=== PATIENT | male | born 1940 | race Caucasian/White ===

== ENCOUNTER 2021-12-09 20:25 | Inpatient (IN) | payer OTHER ==
[~2021-12-09] VITALS: Ht 170.2 cm; Wt 57.6 kg
[2021-12-09 20:38] VITALS: BP 131/96
--- NOTE | 2021-12-09 20:47 | NUR ---
Dr. Reed at bedside to exam patient.
--- NOTE | 2021-12-09 20:50 | NUR ---
observedpt to be svt in 190s-200s then convert to afib rvr 110-120s.
--- NOTE | 2021-12-09 20:50 | NUR ---
CODE BRAIN INITIATED PER DR. NUNES. RADIOLOGY NOTIFIED
--- NOTE | 2021-12-09 21:00 | NUR ---
zoll strips stored in pt chart.
--- NOTE | 2021-12-09 21:11 | NUR ---
Patient transfer to CT scan with RN and EMT via [facility].
[2021-12-09 21:20] LABS: BASOPHILS % (AUTO) 0.3 % (0.0-2.0); EOSINOPHILS # (AUTO) 0.2 K/uL (0-0.4); EOSINOPHILS % (AUTO) 1.3 % (0.0-4.0); HEMATOCRIT 50.7 % (36-52); HEMOGLOBIN 17.4 g/dL (12.0-18.0); LYMPHOCYTES # (AUTO) 1.4 K/uL (2.0-11.5); LYMPHOCYTES % (AUTO) 10.7 % (20.5-51.1); MEAN CORPUSCULAR HEMOGLOBIN 32 pg (27-31); MEAN CORPUSCULAR HGB CONC 34 g/dL (33-37); MEAN CORPUSCULAR VOLUME 93.7 fL (80-94); MONOCYTES # (AUTO) 1.3 K/uL (0.8-1.0); NEUTROPHILS # (AUTO) 9.8 K/uL (1.8-7.7); NEUTROPHILS % (AUTO) 77.7 % (42.2-75.2); PLATELET COUNT (AUTO) 239 K/uL (140-450); RED BLOOD CELL COUNT(AUTO) 5.41 MIL/uL (4.20-6.10); RED CELL DISTRIBUTION WIDTH 14.6 % (11.6-13.7); WHITE BLOOD COUNT (AUTO) 12.6 K/uL (4.8-10.8)
--- NOTE | 2021-12-09 21:20 | NUR ---
Patieny returned from CT.
[2021-12-09 21:43] LABS: ANION GAP 14.7 (8-16); ASPARTATE AMINOTRANSFERASE 48 U/L (15-37); CARBON DIOXIDE 27.8 mmol/L (21-32); CHLORIDE 98 mmol/L (98-107); CREATININE 0.9 mg/dL (0.6-1.3); GLUCOSE 188 mg/dL (74-106); POTASSIUM 4.5 mmol/L (3.5-5.1); SODIUM SERUM 136 mmol/L (136-145); TOTAL BILIRUBIN 1.1 mg/dL (0.0-1.0); UREA NITROGEN, BLOOD 17 mg/dL (7-18)
--- NOTE | 2021-12-09 21:45 | NUR ---
received pt from intake and placed to bed 12. pt currently a/o x 4, gcs 15. able tomove all extremities freely. pt is a 81 year old male with hx of DM, MDD, dysphagia and HLD, CVA with R sided weakness coming from [facility] for cc of gen weak. bs 175 initially. code brain called. NIH of 3 given with passed dysphagia screen. pt reports feeling ill.
--- NOTE | 2021-12-09 21:50 | NUR ---
RETURN CALL FROM NEURO WHO SPOKE WITH DR. NUNES
[2021-12-09] MEDS ORDERED: NACL 0.9% 1,000 ML IV ONE (22:35)
--- NOTE | 2021-12-09 23:04 | NUR ---
pt taken to CT via [facility]
--- NOTE | 2021-12-09 23:11 | NUR ---
report given to Trinity HINDS
--- NOTE | 2021-12-09 23:16 | NUR ---
PT TAKEN TO [facility] DEPT FROM CT
--- NOTE | 2021-12-09 23:26 | NUR ---
PATIENT WAS BROUGHT TO MST UNIT FROM ER VIA [facility] AAOX4. ON ROOM AIR. NO S/S OF RESPIRATORY DISTRESS. BREATHING REGULAR NON LABORED. NO COMPLAINTS OF PAIN AT THIS TIME. ON TELE MONITOR. SKIN IS INTACT WITH TATTOO TO LEFT AND RIGHT FOREARM. ALL SAFETY PRECAUTIONS ARE IN PLACE. ORIENTED TO CALL LIGHT, ROOM AND STAFF. PATIENT CLEANED AND CHANGED. RESTING COMFORTABLY IN BED.
--- NOTE | 2021-12-10 | NUR ---
STARTED IVF NS AT 75 ML/HR. V/S: 212/81, 94, 22, 96.9, 96% RA.
--- NOTE | 2021-12-10 03:25 | NUR ---
PATIENT SLEEPING, OBSERVED CHEST RISE AND FALL SYMMETRICALLY. CALL LIGHT WITHIN REACH.
[2021-12-10 05:39] LABS: BASOPHILS % (AUTO) 0.1 % (0.0-2.0); EOSINOPHILS # (AUTO) 0.2 K/uL (0-0.4); HEMATOCRIT 42.6 % (36-52); HEMOGLOBIN 14.6 g/dL (12.0-18.0); LYMPHOCYTES # (AUTO) 1.3 K/uL (2.0-11.5); LYMPHOCYTES % (AUTO) 14.3 % (20.5-51.1); MEAN CORPUSCULAR HEMOGLOBIN 32 pg (27-31); MEAN CORPUSCULAR HGB CONC 34 g/dL (33-37); MEAN CORPUSCULAR VOLUME 93.1 fL (80-94); MONOCYTES % (AUTO) 10.5 % (1.7-9.3); NEUTROPHILS # (AUTO) 6.8 K/uL (1.8-7.7); NEUTROPHILS % (AUTO) 73.1 % (42.2-75.2); PLATELET COUNT (AUTO) 198 K/uL (140-450); RED BLOOD CELL COUNT(AUTO) 4.58 MIL/uL (4.20-6.10); RED CELL DISTRIBUTION WIDTH 14.3 % (11.6-13.7); WHITE BLOOD COUNT (AUTO) 9.2 K/uL (4.8-10.8)
[2021-12-10 06:29] LABS: ANION GAP 11.2 (8-16); ASPARTATE AMINOTRANSFERASE 16 U/L (15-37); CARBON DIOXIDE 26.3 mmol/L (21-32); CHLORIDE 105 mmol/L (98-107); CREATININE 0.8 mg/dL (0.6-1.3); GLUCOSE 145 mg/dL (74-106); POTASSIUM 3.5 mmol/L (3.5-5.1); SODIUM SERUM 139 mmol/L (136-145); TOTAL BILIRUBIN 0.6 mg/dL (0.0-1.0); UREA NITROGEN, BLOOD 15 mg/dL (7-18)
--- NOTE | 2021-12-10 07:30 | NUR ---
RECEIVED REPORT FROM FRONT OFFICE MANAGER NURSE. PT IS AWAKE, A&OX4. PT ON ROOM AIR, BREATHING UNLABORED. PT ON BED REST. IV SITE ON LEFT AC, 22G, RUNNING AT 75ML/HR NSS. PLAN OF CARE DISCUSSED.
--- NOTE | 2021-12-10 07:49 | NUR ---
BEDSIDE ENDORSEMENT GIVEN TO AM NURSE FOR CONTINUITY OF CARE. PT IS STABLE.
[2021-12-10 08:00] VITALS: BP 130/81
--- NOTE | 2021-12-10 10:00 | NUR ---
PT'S HEART RATE WENT UP TO 180, PT IS ASYMPTOMATIC, DENIES CHEST PAIN, ENCOURAGED TO DO DEEP BREATHING AND VALSALVA MANEUVER.
--- NOTE | 2021-12-10 10:04 | NUR ---
PATIENT HAS BEEN SCREENED AND CATEGORIZED LOW NUTRITION RISK. PATIENT WILL BE SEEN WITHIN 7 DAYS OF ADMISSION. 12/16/[address]
[2021-12-10] MEDS ORDERED: ACETAMINOPHEN 325 MG TAB PO PRN (10:25)
[2021-12-10] MEDS ORDERED: ONDANSETRON 4 MG/2 ML VIAL IM/IVP PRN (10:25)
[2021-12-10] MEDS ORDERED: DOCUSATE SODIUM 100 MG GELCAP PO PRN (10:25)
[2021-12-10 12:00] VITALS: BP 120/65
[2021-12-10] MEDS ORDERED: BUPR150T12 PO (12:30)
[2021-12-10] MEDS ORDERED: ASPI-1822 PO (12:30)
[2021-12-10] MEDS ORDERED: OMEP40EC23 PO (12:30)
[2021-12-10] MEDS ORDERED: ATOR40TA PO (12:30)
[2021-12-10 12:52] LABS: CHOL/HDL RATIO 2.7 (1-4.5); MAGNESIUM 1.9 mg/dL (1.8-2.4); PHOSPHORUS 3.4 mg/dL (2.5-4.9); THYROID STIMULATING HORMONE 0.98 uIU/mL (0.34-3.74)
[2021-12-10 12:54] LABS: PROTHROMBIN TIME 9.9 secs (10.8-13.4)
--- NOTE | 2021-12-10 13:10 | NUR ---
PT REQUESTED FOR WATER, BUT INSTRUCTED PT THAT HE'S ON NPO. TRIED TO GIVE 1 SMALL BLOCK OF ICE, AND INSTRUCTED PT TO JUST LET IT MELT IN HIS MOUTH. PT VERBALIZED UNDERSTANDING. PT COUGHED AFTER THE ICE MELTED IN HIS MOUTH, AND DISCONTINUED GIVING ICE.
[2021-12-10] MEDS ORDERED: MAG SULF 2000 MG/WATER PREMIX 50 ML IV PRN (14:30)
[2021-12-10] MEDS ORDERED: POTASSIUM CHLORIDE 10 MEQ TABER PO PRN (14:30)
[2021-12-10] MEDS ORDERED: HYDROcodone/APAP 5/325 MG 1 TAB TAB PO PRN (14:35)
[2021-12-10] MEDS ORDERED: LORazepam 2 MG/ML VIAL IM/IVP PRN (14:35)
[2021-12-10] MEDS ORDERED: ZOLPIDEM 5 MG TAB PO PRN (14:35)
[2021-12-10 16:00] VITALS: BP 143/74
--- NOTE | 2021-12-10 16:00 | NUR ---
PT AWAKE, LYING ON HIS BED, BREATHING UNLABORED. WILL CONTINUE TO MONITOR.
--- NOTE | 2021-12-10 19:10 | NUR ---
GAVE REPORT TO AUTOMOTIVE LIGHT MECHANIC NURSE. PT IS STABLE. DISCUSSED PLAN OF CARE.
--- NOTE | 2021-12-10 19:30 | NUR ---
RECEIVED REPORT FROM GUZMAN HILL AT BEDSIDE FOR CONTINUITY OF CARE, PT IN BED AOX3 ON ROOM AIR WITH NO S/S OF DISTRESS NOTED. PT IS NOTED WITH A RIGHT SIDED FACIAL DROOP EFRAIN. IN THE MOUTH. PT RIGHT SIDED IV SITE IS OUT. WILL REPLACE IT WITH ANOTHER IV SITE. SKIN INTACT, PT IS A FALLS RISK AND ON FALLS PRECAUTIONS. PT HAS NO C/O VOICED AT THIS TIME.
--- NOTE | 2021-12-10 19:30 | NUR ---
PT PULLED IV OUT WHILE GIVING REPORT TO SHOESHINER NURSE. BLEEDING CONTROLLED. SAFETY MEASURES DONE. INSERTED NEW IV ON LEFT FA, 22G. IV SITE IS INTACT, AND INFUSING WELL.
[2021-12-10 20:00] VITALS: BP 130/72
--- NOTE | 2021-12-10 20:00 | NUR ---
PT RECEIVED A NEW IV SITE IN THE LEFT F/A 22 GUAGE. OLD IV IS OUT CANNULA INTACT. PT ALSO SUBMITTED A URINE SAMPLE FOR ORDERED TESTS IT WAS SENT TO LAB FOR PROCESSING. FLUIDS CONTINUE NORMAL SALINE AT 75MLS/HR. V/S FOLLOWS: T 97.6 P 75 R 20 B/P 130/72 02 93% ON ROOM AIR.
--- NOTE | 2021-12-10 21:30 | NUR ---
PT GIVEN ORDERED LIPITOR, WELLBUTRIN AND HEPARIN (SQ).PT EDUCATED REGARDING MEDICATION. REINFORCEMENT NEEDED , BUT PT VERBALIZED UNDERSTANDING. PT ABLE TO TAKE MEDICATION WHOLE WITH APPLE SAUCE AND DRINK THIN LIQUIDS NO PROBLEM. PT IS ABLE TO TURN SELF IN BED AND MAKE NEEDS KNOWN. ALL FALLS AND ASPIRATION PRECAUTIONS IN PLACE.
[2021-12-10] MEDS: buPROPion 150 MG TABER PO SCH (22:08)
[2021-12-10] MEDS: ATORVASTATIN 20 MG TAB PO SCH (22:09)
--- NOTE | 2021-12-10 22:15 | NUR ---
ROUNDS DONE, PT IN BED ASLEEP ALL ORDERED PRECAUTIONS IN PLACE.
[2021-12-10 23:42] LABS: APPEARANCE,URINE CLEAR (CLEAR); BILIRUBIN,URINE NEGATIVE (NEGATIVE); BLOOD, URINE NEGATIVE (NEGATIVE); COLOR,URINE YELLOW (YELLOW); LEUKOCYTE ESTERASE ,URINE 2+ (NEGATIVE); NITRITE, URINE NEGATIVE (NEGATIVE); PH,URINE 6.5 (5.0-9.0); UGLUCOSE NEGATIVE (NEGATIVE)
[2021-12-10 23:51] LABS: BARBITURATE, URINE NEGATIVE ng/ml (NEG <=200); BENZODIAZEPINE, URINE NEGATIVE ng/mL (NEG <=200); CANNABINOID, URINE NEGATIVE ng/mL (NEG <=50); COCAINE, URINE NEGATIVE ng/mL (NEG <=300); OPIATE, URINE NEGATIVE ng/mL (NEG <=2000); PHENCYCLIDINE SCREEN,URINE NEGATIVE ng/mL (NEG <=25)
[2021-12-10 23:56] LABS: RBC,URINE 0-5 /HPF (0-5); URINE AMORPHOUS URATE 2+ /HPF (None Seen)
[2021-12-11] VITALS: BP 130/69
--- NOTE | 2021-12-11 00:30 | NUR ---
PT IN BED ASLEEP, AROUSABLE TO NAME AND LIGHT SHAKING NO C/O VOICED V/S FOLLOWS: T 97.0 P 81 R 19 B/P 130/69 02 92% ON ROOM AIR. ALL ORDERED PRECAUTIONS IN PLACE.
--- NOTE | 2021-12-11 01:45 | NUR ---
LABS CHECKED URINE POSITIVE FOR + 30 BACTERIA TEXTED MD GOMEZ CYLINDER HANDLER, BECAUSE PT HAS NO EMPIRIC THERAPY ORDERED.
[2021-12-11 04:00] VITALS: BP 123/58
[2021-12-11 05:55] LABS: BASOPHILS % (AUTO) 0.2 % (0.0-2.0); EOSINOPHILS # (AUTO) 0.2 K/uL (0-0.4); HEMATOCRIT 42.5 % (36-52); HEMOGLOBIN 14.3 g/dL (12.0-18.0); LYMPHOCYTES # (AUTO) 1.4 K/uL (2.0-11.5); MEAN CORPUSCULAR HEMOGLOBIN 32 pg (27-31); MEAN CORPUSCULAR HGB CONC 34 g/dL (33-37); MEAN CORPUSCULAR VOLUME 93.5 fL (80-94); MONOCYTES # (AUTO) 0.7 K/uL (0.8-1.0); MONOCYTES % (AUTO) 10.3 % (1.7-9.3); NEUTROPHILS # (AUTO) 4.6 K/uL (1.8-7.7); NEUTROPHILS % (AUTO) 66.5 % (42.2-75.2); PLATELET COUNT (AUTO) 168 K/uL (140-450); RED BLOOD CELL COUNT(AUTO) 4.54 MIL/uL (4.20-6.10); RED CELL DISTRIBUTION WIDTH 14.3 % (11.6-13.7); WHITE BLOOD COUNT (AUTO) 6.9 K/uL (4.8-10.8)
--- NOTE | 2021-12-11 06:00 | NUR ---
PT FINGERSTICK TAKEN IT WAS 129 NO HUMALOG COVERAGE NEEDED. PT ABLE TO REPOSITION IN BED NO C/O VOICED ALL REQUESTED NEEDS ATTENDED BY STAFF AND ALL ORDERED PRECAUTIONS IN PLACE.
[2021-12-11 06:20] LABS: CHOL/HDL RATIO 2.8 (1-4.5)
[2021-12-11 06:22] LABS: PHOSPHORUS 2.7 mg/dL (2.5-4.9)
[2021-12-11 06:29] LABS: ANION GAP 8.1 (8-16); CARBON DIOXIDE 26.5 mmol/L (21-32); CHLORIDE 106 mmol/L (98-107); CREATININE 0.7 mg/dL (0.6-1.3); GLUCOSE 115 mg/dL (74-106); POTASSIUM 3.6 mmol/L (3.5-5.1); SODIUM SERUM 137 mmol/L (136-145); UREA NITROGEN, BLOOD 10 mg/dL (7-18)
--- NOTE | 2021-12-11 07:30 | NUR ---
RECEIVED REPORT FROM BALLOON PILOT NURSE AT BEDSIDE FOR CONTINUITY OF CARE, PT IN BED AOX3 ON ROOM AIR WITH NO S/S OF DISTRESS NOTED. NO FACIAL DROOP WAS NOTED. SKIN IS WARM, DRY, AND INTACT. IV SITE ON LAC 22G INTACT AND PATENT. PT DENIES PAIN AT THE MOMENT. PT IS A FALLS RISK AND ON FALLS PRECAUTIONS. PLAN OF CARE DISCUSSED. SAFETY PRECAUTIONS IN PLACE. CALL LIGHT WITHIN REACH. WILL CONTINUE TO MONITOR.
[2021-12-11 08:00] VITALS: BP 139/81
--- NOTE | 2021-12-11 08:23 | NUR ---
DC PLANNING: CM RECEIVED AN ORDER FOR THE PATIENT TO HAVE AN MRI. ORDER AND PACKET FAXED TO [facility] [employer] SALES CONSULTANT WHO STATES THAT THE CASINO WORKER WON'T BE IN UNTIL 11:00 AND SHE WILL CALL CM TO POTENTIALLY SCHEDULE PROCEDURE. PATIENT PLACED ON WILL CALL WITH [facility] ([phone]), ALS LEVEL WITH TELEMETRY MONITORING. PCS FORM SENT TO [facility], TRANSPORT AUTH'D BY [facility], AUTH NUMBER GIVEN TO [facility]-[id number]. CM ASKED CHARGE NURSE GURWINDER TO HAVE THE PATIENTS NURSE COMPLETE THE MRI FORM, CM WILL FAX FORM ONCE COMPLETED. CM WILL FOLLOW. Addendum: 12/11/21 at 1116 by Elena Samuels CM DC PLANNING: THE PATIENT PRESENTED TO THE ED WITH C/O RIGHT SIDED FACIAL DROOP, H/O PRIOR CVA AND DM. SHIRLEY SPOKE WITH MYCHAL, THE HISTORIOGRAPHY PROFESSOR OF THE B& THAT THE PATIENT RESIDES AT. THE PATIENT IS NORMALLY ALERT AND ORIENTED AND IS ABLE TO AMBULATE AROUND THE HOUSE/FACILITY USING HIS FWW. HE HAS BEEN AT THE [facility] FOR 6 YEARS AND HAS ALSO BEEN AT [facility]. THE PATIENT WAS NOTED TO BE WEAKER THAN USUAL AND REQUIRING MORE ASSISTANCE WITH TRANSFERS. HE NORMALLY DRESSES HIMSELF AND REQUIRES ASSISTANCE GETTING INTO THE SHOWER BUT BATHES AND FEEDS HIMSELF. DEPENDING ON THE PATIENTS LEVEL OF FUNCTIONING HE MAY REQUIRE SNF PLACEMENT VS RETURNING TO THE &, [facility] WOULD BE THE CHOICE OF THE [facility] HISTORIOGRAPHY PROFESSOR. CM WILL FOLLOW. Addendum: 12/11/21 at 1221 by Elena Samuels CM DC PLANNING: PATIENT TO BE PICKED UP BY [facility] AT 1330, IF THEY ARE DELAYED BY A 911 RESPONSE CALL THEY WILL CALL [facility] AND SPEAK WITH GURWINDER SO THAT HE CAN NOTIFY [facility] ([phone]). [facility] WILL WAIT WHILE THE PATIENT GETS HIS MRI AND THEN RETURN HIM TO [facility]. SHIRLEY WILL FOLLOW. Addendum: 12/11/21 at 1554 by Adriane Echevarria RN DC PLANNING: RECEIVED AN MRI RESULT FROM [facility]. PROVIDE THE RESULT TO DR BENTLEY. CM TO FOLLOW Addendum: 12/12/21 at 1116 by Elena Samuels CM DC PLANNING: MRI NEGATIVE FOR ACUTE STROKE, PATIENT CLEARED BY NEUROLOGY. DC ORDER RECEIVED, PATIENT REFERRED TO [facility] HE HAS BEEN THERE IN THE PAST. WAITING FOR BED ASSIGNMENT, PATIENT TO CONTINUE IV ABX X 6 DAYS. CM ALSO SPOKE WITH MYCHAL FROM THE PATIENTS [facility] TO ENDORSE THE PLAN FOR PATIENT TO GO TO SNF. CM WILL FOLLOW. Addendum: 12/12/21 at 1456 by Elena Samuels CM DC PLANNING: PATIENT UNABLE TO GO TO SNF SOC IS $1400. PATIENT TO RETURN TO [facility], IV ABX AND NURSING BEING ARRANGED WITH [facility] ([phone]). REQUEST FOR TRANSPORT THROUGH [facility] FAXED TO THEM FOR [address] BALER TIME, PATIENTS PERIPHERAL IV TO BE CHANGED PRIOR TO LEAVING. PLAN ENDORSED TO THE CHARGE NURSE REBECA AND TO MYCHAL, THE HISTORIOGRAPHY PROFESSOR OF THE [facility]. CM WILL FOLLOW. Addendum: 12/12/21 at 1605 by Elena Samuels CM DC PLANNING: CM CANCELLED PATIENTS TRANSPORT WITH [facility] WHICH HAD BEEN ARRANGED FOR [address] BALER TIME PATIENT WILL STAY FOR ID CONSULT AND RX FOR IV ABX. SHIRLEY ALSO SPOKE WITH [facility] TO CANCEL THE ORDER SENT FOR ROCEPHIN IV. SHIRLEY ALSO NOTIFIED MYCHAL AT THE [facility] FACILITY THAT THE PATIENT WILL STAY TODAY. SHIRLEY WILL FOLLOW. Addendum: 12/13/21 at 1158 by Elena Samuels CM DC PLANNING: SHIRLEY IS WAITING FOR FINAL ORDERS FOR IV ABX. SHIRLEY PRESENTED THE IMPORTANT MESSAGE FROM MEDICARE TO THE PATIENT, FORM SIGNED, COPY GIVEN TO PATIENT AND ORIGINAL PLACED ON CHART. CM WILL FOLLOW. Addendum: 12/13/21 at 1537 by Elena Samuels CM NE PLANNING: [facility] IS UNABLE TO PROVIDE IV ABX AND NURSING BECAUSE OF THE PATIENTS SECONDARY [facility]. CM SPOKE WITH [facility], DIRECTED TO USE [facility] WHO WILL PROVIDE IV ABX AND WILL FIND NURSING. [facility] PHONE NUMBER IS [phone], FAX NUMBER IS [phone]. [facility], ADDRESS [address] [place] [address], PHONE NUMBER FOR HISTORIOGRAPHY PROFESSORMYCHAL IS [phone]. [facility] NEEDS TO BE CALLED, FORM FOR [facility] LEFT WITH MAIL CLERK BILLS. [facility]'S NUMBER IS [phone], [facility] AUTH NUMBER FOR [facility] IS [id number]. CM WILL FOLLOW.
--- NOTE | 2021-12-11 08:30 | NUR ---
ENDORSED MRI CHECKLIST WITH PATIENT. EDUCATED THE PATIENT ABOUT THE MRI PROCEDURE. PATIENT VERBALIZED UNDERSTANDING AND SIGNED MRI FORMS
[2021-12-11] MEDS: ASPIRIN 81 MG TAB.CHEW PO SCH (08:36)
[2021-12-11] MEDS: buPROPion 150 MG TABER PO SCH ×2 (08:37→20:22)
[2021-12-11] MEDS ORDERED: PANTOPRAZOLE 40 MG TABEC PO SCH (09:00)
--- NOTE | 2021-12-11 09:10 | NUR ---
SKIN ASSESSMENT DONE NO OPEN WOUND. PT ZELALEM SCALE 19.
--- NOTE | 2021-12-11 09:24 | NUR ---
ALL SCHEDULED MEDS GIVEN. PT IS STABLE. NO DISTRESS NOTED. WILL CONTINUE TO MONITOR.
[2021-12-11] MEDS ORDERED: PANTOPRAZOLE 40 MG INJ VIAL IVP SCH (11:45)
[2021-12-11 12:00] VITALS: BP 145/74
--- NOTE | 2021-12-11 12:15 | NUR ---
NOTIFIED BY SHIRLEY HART THAT PATIENT WILL BE TRANSPORTED TO [facility] FOR AN MRI PROCEDURE. ETA TRANSPORT AT 1330
--- NOTE | 2021-12-11 12:59 | NUR ---
[facility] TRANSPORT AT BEDSIDE. PATIENT WILL BE TRANSPORTED TO [facility] FOR MRI PROCEDURE. CONTACTED [facility] AND NOTIFIED THAT PATIENT WILL BE THERE SHORTLY.
--- NOTE | 2021-12-11 15:00 | NUR ---
PATIENT TRANSPORTED BACK TO ROOM BY [facility] TRANSPORTATION. PATIENT COMPLETED MRI TEST. PT IS STABLE. NO DISTRESS NOTED. WILL CONTINUE TO MONITOR.
[2021-12-11] MEDS ORDERED: ALUMINUM HYD/MAG/SIMETHICONE 30 ML UDC PO SCH (15:15)
[2021-12-11] MEDS ORDERED: DICYCLOMINE HCL LIQUID 10 MG/5 ML UDC PO SCH (15:15)
[2021-12-11 16:00] VITALS: BP 144/78
--- NOTE | 2021-12-11 17:40 | NUR ---
CHECKED ON PATIENT. PT IS STABLE. NO DISTRESS NOTED. WILL CONTINUE TO MONITOR.
--- NOTE | 2021-12-11 19:25 | NUR ---
ENDORSED TO DYE COLORIST DYER NURSE FOR CONTINUITY OF CARE. PT IS STABLE.
--- NOTE | 2021-12-11 19:30 | NUR ---
RECEIVED REPORT FROM DAY SHIFT NURSE FOR CONTINUITY OF CARE, PT IN BED AOX4, ROOM AIR WITH NO S/SX OF DISTRESS NOTED.FACIAL DROOP WAS NOTED. SKIN IS WARM, DRY, AND INTACT. IV SITE ON LAC 22G INTACT AND PATENT. PT DENIES PAIN AT THE MOMENT. FALL PRECAUTIONS IN PLACE. PLAN OF CARE DISCUSSED.ALL SAFETY PRECAUTIONS IN PLACE. CALL LIGHT WITHIN REACH. WILL CONTINUE TO MONITOR.
[2021-12-11 20:00] VITALS: BP 131/96
[2021-12-11] MEDS: ATORVASTATIN 20 MG TAB PO SCH (20:23)
[2021-12-11] MEDS: PIPERACILLIN/TAZOBACTAM 3.375 GM in DEXTROSE 5% 50 ML IV SCH (20:23)
--- NOTE | 2021-12-11 21:00 | NUR ---
ALL SCHEDULED MEDS GIVEN. PT IS STABLE. NO DISTRESS NOTED. WILL CONTINUE TO MONITOR.
--- NOTE | 2021-12-11 21:00 | NUR ---
PT COMPLAINING OF HEARTBURN. DR GARCIA INFORMED.ORDERED KUB STAT.
[2021-12-12] VITALS: BP 127/67
--- NOTE | 2021-12-12 00:40 | NUR ---
VITALS SIGNS STABLE. PT NO S/SX OF DISTRESS NOTED.BREATHING EQUAL AND UNLABORED.CALL LIGHT WITHIN REACH.ALL PRECAUTIONS IN PLACE. WILL CONTINUE TO MONITOR.
[2021-12-12 04:00] VITALS: BP 128/72
[2021-12-12] MEDS: PIPERACILLIN/TAZOBACTAM 3.375 GM in DEXTROSE 5% 50 ML IV SCH ×3 (05:28→21:32)
--- NOTE | 2021-12-12 05:30 | NUR ---
SCHEDULED ANTIBIOTICS GIVEN. PT TOLERATED WELL. WILL CONTINUE TO MONITOR.
[2021-12-12 05:49] LABS: BASOPHILS % (AUTO) 0.3 % (0.0-2.0); EOSINOPHILS # (AUTO) 0.1 K/uL (0-0.4); EOSINOPHILS % (AUTO) 1.9 % (0.0-4.0); HEMATOCRIT 40.3 % (36-52); HEMOGLOBIN 13.8 g/dL (12.0-18.0); LYMPHOCYTES # (AUTO) 1.1 K/uL (2.0-11.5); MEAN CORPUSCULAR HEMOGLOBIN 32 pg (27-31); MEAN CORPUSCULAR HGB CONC 34 g/dL (33-37); MEAN CORPUSCULAR VOLUME 93.5 fL (80-94); MONOCYTES # (AUTO) 0.7 K/uL (0.8-1.0); MONOCYTES % (AUTO) 10.4 % (1.7-9.3); NEUTROPHILS # (AUTO) 4.5 K/uL (1.8-7.7); NEUTROPHILS % (AUTO) 70.4 % (42.2-75.2); PLATELET COUNT (AUTO) 171 K/uL (140-450); RED BLOOD CELL COUNT(AUTO) 4.31 MIL/uL (4.20-6.10); RED CELL DISTRIBUTION WIDTH 13.9 % (11.6-13.7); WHITE BLOOD COUNT (AUTO) 6.4 K/uL (4.8-10.8)
[2021-12-12 06:28] LABS: ANION GAP 11.7 (8-16); CARBON DIOXIDE 24.8 mmol/L (21-32); CHLORIDE 105 mmol/L (98-107); CREATININE 0.8 mg/dL (0.6-1.3); GLUCOSE 126 mg/dL (74-106); POTASSIUM 3.5 mmol/L (3.5-5.1); SODIUM SERUM 138 mmol/L (136-145); UREA NITROGEN, BLOOD 8 mg/dL (7-18)
[2021-12-12 06:33] LABS: MAGNESIUM 1.8 mg/dL (1.8-2.4); PHOSPHORUS 3.2 mg/dL (2.5-4.9)
--- NOTE | 2021-12-12 07:20 | NUR ---
PT IS STABLE. NO ACUTE EVENTS THROUGHOUT THE NIGHT. NO S/SX OF DISTRESS NOTED. NO COMPLAINS OF PAIN AT THIS MOMENT. ALL NEEDS ATTENDED. ALL PRECAUTIONS IN PLACE. WILL ENDORSE TO AM SHIFT NURSE.
--- NOTE | 2021-12-12 07:30 | NUR ---
RECEIVED REPORT FROM [facility]. PT A/O X 3. NO SOB OR RESPIRATORY DISTRESS. ON RA. DENIES PAIN. LAC #22 DRESSING PATENT. ENCOURAGE USE OF CALL LIGHT. NEEDS ALL MET AT THIS TIME SAFETY MEASURES IN PLACE. WILL CONTINUE TO MONITOR CLOSELY.
[2021-12-12 08:00] VITALS: BP 150/86
[2021-12-12] MEDS: PANTOPRAZOLE 40 MG INJ VIAL IVP SCH (09:02)
[2021-12-12] MEDS: ASPIRIN 81 MG TAB.CHEW PO SCH (09:03)
[2021-12-12] MEDS: buPROPion 150 MG TABER PO SCH ×2 (09:03→21:34)
--- NOTE | 2021-12-12 10:00 | NUR ---
DISCHARGE PLANNING LATE ENTRY PATIENT IS AN 81 YEAR OLD MALE ADMITTED ON AT [facility]/ED ON 12/09/2021 DUE TO COMPLAINTS OF WEAKNESS AND INABILITY TO GET OUT OF BED. PATIENT ALSO HAD RIGHT-SIDED FACIAL RIGHT-SIDED FACIAL WEAKNESS WITH RIGHT-SIDED TONGUE DEVIATION. PATIENT HAS HX. OF STROKES 4 TIMES, HYPERTENSION AND HYPERLIPIDEMIA. SW MET WITH PATIENT AT BEDSIDE TO DISCUSS AND GATHER HIS COLLATERAL INFORMATION. PATIENT WAS AWAKE AND ALERT EATING HIS LUNCH. PATIENT REPORTED THAT HE HAS BEEN LIVING AT [facility] IN [place] FOR ABOUT 6 YEARS. PATIENT STATED THAT HE HAS NO FAMILY SUPPORT HAS A SON BUT HAS NOT CONTINUE CONTACT WITH HIM FOR A LONG TIME AND DO NOT REMEMBER ANY OF HIS INFORMATION. PT. DECLINED A.D. INFORMATION FORMS PROVIDED BY THESE SW. 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 PATIENT REPORTED NOT HAVING ANY ISSUES WITH HIS MEDICATIONS SINCE HE GETS THEN SEND TO THE [facility] AND THEY HELP HIM WITH HIS MEDICATION INTAKE. PATIENT WAS VERY PLEASANT WITH SW DURING THE MEETING.SW WILL FOLLOW UP NEEDED.
[2021-12-12] MEDS ORDERED: DICYCLOMINE HCL LIQUID 10 MG/5 ML UDC ONE (10:23)
[2021-12-12] MEDS ORDERED: ALUMINUM HYD/MAG/SIMETHICONE 30 ML UDC ONE (10:23)
[2021-12-12] MEDS ORDERED: DICYCLOMINE HCL LIQUID 20 MG, ALUMINUM HYD/MAG/SIMETHICONE 30 ML, LIDOCAINE VISCOUS 2% ... PO SCH ×3 (10:30)
[2021-12-12] MEDS ORDERED: ROC2I IV (10:37)
--- NOTE | 2021-12-12 11:00 | NUR ---
PT C/O GI DISCOMFORT. ONE TIME DOSE MEDICATION GIVEN. PT STATES RELIEF. NEEDS ALL MET. SAFETY MEASURES IN PLACE. HOURLY ROUNDS CONDUCTED THROUGHOUT MY SHIFT.
[2021-12-12 12:00] VITALS: BP 125/66
[2021-12-12 16:00] VITALS: BP 129/77
--- NOTE | 2021-12-12 18:00 | NUR ---
PER CASE MANAGEMENT NOTES, DISCHARGE CANCELLED. PT STABLE. NO SOB OR RESPIRATORY DISTRESS. ON RA. NEEDS ALL MET. SAFETY MEASURES IN PLACE.
--- NOTE | 2021-12-12 19:25 | NUR ---
REPORT GIVEN TO NIGHTSIDFT RNFRANK FOR CONTINUITY OF CARE.
--- NOTE | 2021-12-12 19:26 | NUR ---
RECEIVED BEDSIDE ORDER FR0M DAY SHIFT NURSE FOR CONTINUITY OF PATIENT'S CARE.
[2021-12-12 20:00] VITALS: BP 158/79
--- NOTE | 2021-12-12 20:00 | NUR ---
PT IS ON STABLE CONDITION. IV SITE ON LEFT FOREARM AND IV HYDRATION IS ON GOING ON KVO. PT DENIED OF FEELING PAIN
[2021-12-12] MEDS: ATORVASTATIN 20 MG TAB PO SCH (21:33)
[2021-12-13] VITALS: BP 146/66
--- NOTE | 2021-12-13 | NUR ---
PT ASLEEP, DENIED OF HAVING PAIN. SAFETY MEASURES IN PLACE, CALL LIGHT WITHIN REACH.
--- NOTE | 2021-12-13 03:30 | NUR ---
PATIENT IS ASLEEP, NO SOB OR DISTRESS. IV SITE INTACT AND PATENT. NO COMPLAINT OF ABNORMALITY.
[2021-12-13 04:00] VITALS: BP 127/75
[2021-12-13] MEDS: PIPERACILLIN/TAZOBACTAM 3.375 GM in DEXTROSE 5% 50 ML IV SCH ×2 (05:02→13:10)
[2021-12-13 05:39] LABS: MAGNESIUM 1.8 mg/dL (1.8-2.4); PHOSPHORUS 3.2 mg/dL (2.5-4.9)
[2021-12-13 06:32] LABS: ANION GAP 14.2 (8-16); CARBON DIOXIDE 25.6 mmol/L (21-32); CHLORIDE 105 mmol/L (98-107); CREATININE 0.8 mg/dL (0.6-1.3); GLUCOSE 119 mg/dL (74-106); POTASSIUM 3.8 mmol/L (3.5-5.1); SODIUM SERUM 141 mmol/L (136-145); UREA NITROGEN, BLOOD 8 mg/dL (7-18)
--- NOTE | 2021-12-13 07:25 | NUR ---
ENDORSE PATIENT TO DAY SHIFT NURSE, MITZY, FOR CONTINUITY OF CARE.
[2021-12-13 08:00] VITALS: BP 149/84
[2021-12-13] MEDS: PANTOPRAZOLE 40 MG INJ VIAL IVP SCH (08:22)
[2021-12-13] MEDS: buPROPion 150 MG TABER PO SCH ×2 (08:23→22:08)
[2021-12-13] MEDS: ASPIRIN 81 MG TAB.CHEW PO SCH (08:24)
[2021-12-13 14:00] VITALS: BP 149/84
[2021-12-13 16:00] VITALS: BP 128/75
--- NOTE | 2021-12-13 19:15 | NUR ---
RECEIVED BEDSIDE REPORT FROM DAY SHIFT NURSE FOR CONTINUITY OF PATIENT CARE.
[2021-12-13 20:00] VITALS: BP 142/71
[2021-12-13 20:27] LABS: BASOPHILS % (AUTO) 0.7 % (0.0-2.0); EOSINOPHILS # (AUTO) 0.2 K/uL (0-0.4); HEMATOCRIT 40.4 % (36-52); HEMOGLOBIN 13.5 g/dL (12.0-18.0); LYMPHOCYTES # (AUTO) 1.2 K/uL (2.0-11.5); LYMPHOCYTES % (AUTO) 19.1 % (20.5-51.1); MEAN CORPUSCULAR HEMOGLOBIN 32 pg (27-31); MEAN CORPUSCULAR HGB CONC 33 g/dL (33-37); MEAN CORPUSCULAR VOLUME 95.1 fL (80-94); MONOCYTES # (AUTO) 0.6 K/uL (0.8-1.0); MONOCYTES % (AUTO) 8.8 % (1.7-9.3); NEUTROPHILS # (AUTO) 4.5 K/uL (1.8-7.7); NEUTROPHILS % (AUTO) 68.4 % (42.2-75.2); PLATELET COUNT (AUTO) 174 K/uL (140-450); RED BLOOD CELL COUNT(AUTO) 4.25 MIL/uL (4.20-6.10); RED CELL DISTRIBUTION WIDTH 14.8 % (11.6-13.7)
[2021-12-13 20:29] LABS: WHITE BLOOD COUNT (AUTO) 6.5 K/uL (4.8-10.8)
[2021-12-13] MEDS: AMPICILLIN 1,000 MG in NACL 0.9% 50 ML IV SCH (21:00)
[2021-12-13] MEDS: ATORVASTATIN 20 MG TAB PO SCH (21:59)
--- NOTE | 2021-12-13 22:00 | NUR ---
PATIENT IS STABLE AND ASLEEP, NO SOB OR DISTRESS. SAFETY MEASURES IN PLACE. NEEDS ATTENDED
[2021-12-14] VITALS: BP 138/72
[2021-12-14 04:00] VITALS: BP 139/74
[2021-12-14] MEDS: AMPICILLIN 1,000 MG in NACL 0.9% 50 ML IV SCH ×2 (05:15→12:11)
[2021-12-14 06:12] LABS: BASOPHILS % (AUTO) 0.2 % (0.0-2.0); EOSINOPHILS # (AUTO) 0.2 K/uL (0-0.4); EOSINOPHILS % (AUTO) 2.9 % (0.0-4.0); LYMPHOCYTES # (AUTO) 1.1 K/uL (2.0-11.5); LYMPHOCYTES % (AUTO) 16.4 % (20.5-51.1); MEAN CORPUSCULAR HEMOGLOBIN 32 pg (27-31); MEAN CORPUSCULAR HGB CONC 34 g/dL (33-37); MEAN CORPUSCULAR VOLUME 93.1 fL (80-94); MONOCYTES # (AUTO) 0.6 K/uL (0.8-1.0); MONOCYTES % (AUTO) 9.9 % (1.7-9.3); NEUTROPHILS # (AUTO) 4.6 K/uL (1.8-7.7); NEUTROPHILS % (AUTO) 70.6 % (42.2-75.2); PLATELET COUNT (AUTO) 174 K/uL (140-450); RED BLOOD CELL COUNT(AUTO) 4.41 MIL/uL (4.20-6.10); RED CELL DISTRIBUTION WIDTH 14.1 % (11.6-13.7); WHITE BLOOD COUNT (AUTO) 6.5 K/uL (4.8-10.8)
[2021-12-14 06:28] LABS: ANION GAP 10.3 (8-16); CARBON DIOXIDE 28.9 mmol/L (21-32); CHLORIDE 105 mmol/L (98-107); CREATININE 0.8 mg/dL (0.6-1.3); GLUCOSE 111 mg/dL (74-106); POTASSIUM 4.2 mmol/L (3.5-5.1); SODIUM SERUM 140 mmol/L (136-145); UREA NITROGEN, BLOOD 7 mg/dL (7-18)
--- NOTE | 2021-12-14 06:30 | NUR ---
PT'S IV WAS OUT, REINSERTED A NEW IV LINE ON LEFT FOREARM WITH GOOD BLOOD RETURN, PT TOLERATED WELL, PT DENIED OF PAIN. - MNUREE.
[2021-12-14 06:36] LABS: MAGNESIUM 2.2 mg/dL (1.8-2.4); PHOSPHORUS 3.2 mg/dL (2.5-4.9)
--- NOTE | 2021-12-14 07:15 | NUR ---
PT IS AWAKE AND STABLE. ENDORSED TO DAY SHIFT NURSE FOR CONTINUITY OF PATIENT CARE. - MNUREE.
--- NOTE | 2021-12-14 07:25 | NUR ---
RECEIVED REPORT FROM LUMBER INSPECTOR NURSE FOR CONTINUITY OF CARE. PT AWAKE IN BED. BREATHING SYMMETRICAL ON ROOM AIR, NOTED WITH SLURRED SPEECH. LFA 20G RUNNING 30CC/HR. CALL LIGHT WITHIN REACH. ALL SAFETY MEASURES IN PLACE.
[2021-12-14 08:00] VITALS: BP 148/72
[2021-12-14] MEDS: ASPIRIN 81 MG TAB.CHEW PO SCH (09:36)
[2021-12-14] MEDS: PANTOPRAZOLE 40 MG INJ VIAL IVP SCH (09:36)
[2021-12-14] MEDS: buPROPion 150 MG TABER PO SCH (09:37)
--- NOTE | 2021-12-14 09:45 | NUR ---
SCHEDULED AM MEDICATIONS GIVEN ORDERED.
[2021-12-14] MEDS ORDERED: LEVO750T51 PO (10:21)
--- NOTE | 2021-12-14 12:53 | NUR ---
PT FOR DISCHARGE, CALLED MYCHAL FROM [facility] AND LEFT MESSAGE, WILL TRY AGAIN
--- NOTE | 2021-12-14 13:19 | NUR ---
FOLLOW UP CALL MADE AND SPOKE WITH MYCHAL, MADE AWARE OF PT'S DISCHARGE TODAY. ALSO MADE AWARE THAT WE WILL CALL FOR TRANSPORTATION
--- NOTE | 2021-12-14 13:30 | NUR ---
BEEN TRYING TO CALL [facility] REGARDING PT'S TRANSPORTATION BUT NO ONE'S ANSWERING THE CALL ON [facility].
--- NOTE | 2021-12-14 14:30 | NUR ---
STILL TRYING TO CALL [facility].
[2021-12-14 16:00] VITALS: BP 135/76
--- NOTE | 2021-12-14 17:36 | NUR ---
PT DISCHARGED TO [facility] BELONGINGS AND PAPERWORKS, IN STABLE CONDITION. PERIPHERAL IV LINE REMOVED WITH CATHETER INTACT, NO BLEEDING NOTED.
== END 2021-12-14 17:35 | disposition home or self-care (01) | DRG 872 ==
LOC: MED 20:25 → MTU 22:42
DX: A41.9 Sepsis, unspecified organism (principal); G45.9 Transient cerebral ischemic attack, unspecified; I69.351 Hemiplegia and hemiparesis following cerebral infarction affecting right dominant side; N39.0 Urinary tract infection, site not specified; K21.9 Gastro-esophageal reflux disease without esophagitis; E78.5 Hyperlipidemia, unspecified; F32.9 Major depressive disorder, single episode, unspecified; Z20.822 Contact with and (suspected) exposure to COVID-19; E11.9 Type 2 diabetes mellitus without complications; F17.210 Nicotine dependence, cigarettes, uncomplicated; I25.10 Atherosclerotic heart disease of native coronary artery without angina pectoris; I10 Essential (primary) hypertension; Z90.49 Acquired absence of other specified parts of digestive tract; Z79.82 Long term (current) use of aspirin; Z79.899 Other long term (current) drug therapy
CPT/HCPCS: 36415; 70450; 71045; 74018; 80048; 80053; 80305; 81001; 82948; 83036; 83690; 83735; 84100; 84443; 84484; 85025; 85610; 85730; 86886; 86900; 86901; 87081; 87086; 87186; 92526; 99291; C9113; J0290; J1644; J2543; J7060; Q0092; Q9967